=== PATIENT | female | born 1955 | race African-American/Black ===

== ENCOUNTER 2025-01-15 01:13 | Inpatient (IN) | payer MEDICARE, OTHER ==
[~2025-01-15] VITALS: Ht 172.7 cm; Wt 95.5 kg
[2025-01-15 01:48] VITALS: PULSE 96; RESP 17; TEMP 98.2; O2SAT 96
[2025-01-15] MEDS: LABETALOL HCL 20 MG/4 ML VL IV ONE (02:01)
[2025-01-15] MEDS: LIDOCAINE W/ EPINEPHRINE 1% 20ML VIAL ID ONE (02:02)
[2025-01-15 02:31] LABS: Basophils # (auto) 0 10 ^3/uL (0-0.2); Basophils % (auto) 0.5 % (0.0-2.0); Eosinophils # (auto) 0.1 10 ^3/uL (0-0.8); Eosinophils % (auto) 0.8 % (0.0-7.0); Hematocrit 41.1 % (36.0-46.0); Hemoglobin 14.2 g/dL (12.2-16.2); Lymphocytes # (auto) 2.2 10 ^3/uL (0.4-5.4); Lymphocytes % (auto) 27.7 % (10.0-50.0); Mean Corpuscular Hemoglobin 30.7 pg (28.0-32.0); Mean Corpuscular Hgb Conc. 34.5 g/dL (32.0-36.0); Monocytes # (auto) 0.8 10 ^3/uL (0-1.3); Monocytes % (auto) 10.4 % (0.0-12.0); Neutrophils # (auto) 4.9 10 ^3/uL (1.6-8.6); Neutrophils % (auto) 60.6 % (37.0-80.0); Nucleated Red Blood Cells % 0.1 %; Platelet Count (auto) 221 10^3/uL (140-450); Red Blood Cells 4.62 10^6/uL (4.0-5.20); Red Cell Distribution Width 15.1 % (11.8-14.3)
[2025-01-15] MEDS: hydrALAZINE HCL 20 MG/ML VL IV ONE (02:31)
[2025-01-15 02:42] LABS: Sodium 142 mmol/L (136-145)
[2025-01-15 02:43] LABS: Anion Gap 12 (5-15); Calcium 9.6 mg/dL (8.7-10.4); Carbon Dioxide 22 mmol/L (20-31)
[2025-01-15 02:44] LABS: Chloride 108 mmol/L (98-107); Potassium 3.4 mmol/L (3.5-5.1)
[2025-01-15 02:48] LABS: BUN/Creatinine Ratio 11.9 (10.0-20.0); Blood Urea Nitrogen 15 mg/dL (9-23)
[2025-01-15 02:49] LABS: INR 0.93 (0.9-1.15); Prothrombin Time 9.9 sec (9.3-11.8)
[2025-01-15 02:50] LABS: Glucose 134 mg/dL (74-106)
--- NOTE | 2025-01-15 02:57 | ED.PDOC ---
Epistaxis- HPI HPI Comments 69-year-old female, with a history of hypertension, is brought in by ambulance for bilateral there epistaxis. Patient endorses on sudden onset of symptoms at 12:00 a.m., this morning. This is a 3rd time that has happened to her. She reports being on noncompliant with her hypertension medication in 2017, with her systolic pressure usually being at around 200s range.. Patient is not on blood thinners. Patient admits also to being stressed. On arrival to ED, patient's bleeding is reported to have ceased. Denies any recent injuries or travels. Denies having any lightheadedness, dizziness, weakness, or further associated symptoms. Chief Complaint: Nose Bleed Time Seen by MD: 01:24 Reviewed Notes: Nurses Notes, Crystal Grower Notes, Medications, Allergies Allergies: Coded Allergies: NO KNOWN ALLERGIES (Unverified , 01/15/25) Information Source: Patient, Emergency Med Personnel Mode of Arrival: Ambulatory Vital Signs Vital Signs Date Time Temp Pulse Resp B/P (MAP) Pulse Ox O2 Delivery O2 Flow Rate FiO2 01/15/25 04:24 178/106 01/15/25 04:13 114 01/15/25 01:48 98.2 17 96 98.2 01/15/25 01:48 Room Air* 0 21 Physical Exam General: Awake, alert and oriented. No acute distress. Skin: Skin in warm, dry and intact. Appropriate color for ethnicity. HEENT: The head is normocephalic and atraumatic. Conjunctivae are clear without exudates or hemorrhage. Sclera is non-icteric. EOM are intact. No signs of nystagmus. Eyelids are normal in appearance without swelling or lesions. Oral mucosa is pink and moist. Packing in bilateral naris, left is clean, right has some dry blood, no active bleeding Neck: The neck is supple with normal range of motion. No JVD. Cardiac: Heart rate and rhythm are normal. No murmurs, gallops, or rubs are auscultated. Respiratory: No signs of respiratory distress. Lung sounds are clear in all lobes bilaterally without rales, rhonchi, or wheezes. Abdominal: Abdomen is soft, non-tender without distention, guarding or rigidity. Bowel sounds are present and normoactive in all four quadrants. Extremities: Upper and lower extremities are atraumatic in appearance without de formity or edema. Neurological: The patient is awake, alert and oriented to person, place, and time with normal speech. Speech is clear. There is no facial asymmetry. Psychiatric: Appropriate mood and affect. Good judgement and insight. Review of Systems: REVIEW OF SYSTEMS: No fever, no chills, or fatigue HEENT: Nosebleed, no sore throat, no earache, no congestion, no neck pain. Cardiac: No chest pain. No palpitations. Lungs: No shortness of breath, no cough. GI: No nausea, no vomiting, no diarrhea, no constipation, no abdominal pain : No dysuria, frequency, or urgency. No hematuria. Musculoskeletal: No joint pain , no joint swelling, no extremity edema. Skin: No rash, no itching. 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 Was a procedure done?: No EKG EKG : Pulse Rate (adult): 114 [place]: Normal Cardiac Rhythm: ST Block: None Hypertrophy: None ST: Normal Differential Diagnosis (NSB) Differential Diagnosis: Anterior Nasal Bleed, Posterior Nasal Bleed, Hypertension, Coagulopathy X-Ray, Labs, Meds, VS Vital Signs Date Time Temp Pulse Resp B/P (MAP) Pulse Ox O2 Delivery O2 Flow Rate FiO2 01/15/25 04:24 178/106 01/15/25 04:13 114 01/15/25 04:00 89 01/15/25 03:27 93 200/138 01/15/25 02:31 190/120 01/15/25 02:01 106 179/132 01/15/25 01:48 98.2 96 17 179/132 (148) 96 98.2 01/15/25 01:48 96 17 96 Room Air* 0 21 01/15/25 01:23 97.7 112 20 211/116 (147) 97 97.7 01/15/25 01:19 114 Lab Test 01/15/25 03:20 01/15/25 01:56 Range/Units Urine Color Colorless Yellow Urine Clarity Clear Clear Urine pH 6.0 5.0-9.0 Urine Specific [place] 1.009 1.001-1.035 Urine Protein Trace H Negative Urine Ketones Negative Negative Urine Blood Negative Negative /uL Urine Nitrite Negative Negative Urine Bilirubin Negative Negative Urine Urobilinogen Normal Negative mg/dL Urine Leukocyte Esterase Negative Negative /uL Urine RBC None seen 0 - 4 /hpf Urine Microscopic WBC 2 0-5 /HPF Urine Squamous Epithelial Cells Few <5 /hpf Urine Bacteria Few H None Seen /hpf Urine Glucose Normal Normal mg/dL White Blood Count 8.0 4.4-10.8 10^3/uL Red Blood Count 4.62 4.0-5.20 10^6/uL Hemoglobin 14.2 12.2-16.2 g/dL Hematocrit 41.1 36.0-46.0 % Mean Corpuscular Volume 89.0 80.0-100.0 fL Mean Corpuscular Hemoglobin 30.7 28.0-32.0 pg Mean Corpuscular Hemoglobin Concent 34.5 32.0-36.0 g/dL Red Cell Distribution Width 15.1 H 11.8-14.3 % Platelet Count 221 140-450 10^3/uL Mean Platelet Volume 8.1 6.9-10.8 fL Neutrophils (%) (Auto) 60.6 37.0-80.0 % Lymphocytes (%) (Auto) 27.7 10.0-50.0 % Monocytes (%) (Auto) 10.4 0.0-12.0 % Eosinophils (%) (Auto) 0.8 0.0-7.0 % Basophils (%) (Auto) 0.5 0.0-2.0 % Neutrophils # (Auto) 4.9 1.6-8.6 10 ^3/uL Lymphocytes # (Auto) 2.2 0.4-5.4 10 ^3/uL Monocytes # (Auto) 0.8 0-1.3 10 ^3/uL Eosinophils # (Auto) 0.1 0-0.8 10 ^3/uL Basophils # (Auto) 0 0-0.2 10 ^3/uL Nucleated Red Blood Cells 0.1 % Prothrombin Time 9.9 9.3-11.8 sec Prothrombin Time INR 0.93 0.9-1.15 Sodium Level 142 136-145 mmol/L Potassium Level 3.4 L 3.5-5.1 mmol/L Chloride Level 108 H 98-107 mmol/L Carbon Dioxide Level 22 20-31 mmol/L Anion Gap 12 5-15 Blood Urea Nitrogen 15 9-23 mg/dL Creatinine 1.26 H 0.550-1.02 mg/dL Glomerular Filtration Rate Calc 47 >90 mL/min BUN/Creatinine Ratio 11.9 10.0-20.0 Serum Glucose 134 H 74-106 mg/dL Calcium Level 9.6 8.7-10.4 mg/dL Current Medications Medications (Trade) Dose Ordered Sig/Sandie Route Start Time Stop Time Status Last Admin Labetalol HCl (Labetalol HCl) 20 mg ONCE ONCE IV 01/15/25 01:45 01/15/25 01:53 DC 01/15/25 02:01 Hydralazine HCl (Apresoline Injection) 10 mg ONCE ONCE IV 01/15/25 02:30 01/15/25 02:31 DC 01/15/25 02:31 Nicardipine/ Sodium Chloride 200 ml @ 50 mls/hr Q4H IV 01/15/25 04:15 01/15/25 04:24 Time of 1ST Reevaluation: 02:04 Reevaluation 1ST: Unchanged Patient Education/Counseling: Other (need for admission) Family Education/Counseling: No Family Present Departure 1 Departure Time of Disposition: 02:57 Impression: Primary Impression: Hypertensive urgency Additional Impression: Epistaxis Disposition: ADMITTED INPATIENT Condition: Stable Comments 69-year-old female in noncompliant with antihypertensive medication presents to the emergency department with epistaxis. She is found to have hypertensive urgency. Requiring nicardipine drip. Patient admitted to hospitalist service for further treatment, evaluation and monitoring. Extensive evaluation was performed in attempt to identify or rule out: (See differential diagnosis section) The following tests were ordered, and results were reviewed by me and discussed with patient: (See diagnostic results section) The following test were independently interpreted by me: EKG I reviewed and agreed with the following test results read by other providers: Chest x-ray I reviewed the following notes from the pt's past medical encounters: N/A Additional information was gathered from interviewing the following independent historians: EMS personnel Discussion of management or test interpretation with external physician/other qualified health infant caregiver: N/A Addressed an acute or chronic illness that poses a threat to life or bodily function: Hypertensive urgency Decision regarding hospitalization or escalation of hospital level of care: Risk and benefits of admission for further treatment of patient's condition was considered. Due to patient's current clinical condition, high risk of decline and poor outcome if discharged and need for further inpatient management and monitoring, patient will be admitted to the hospital. Drug therapy requiring intensive monitoring for toxicity: IV labetalol, IV hydralazine, IV nicardipine Parenteral controlled substances: N/A Decision regarding elective major surgery with identified patient or procedure risk factors: N/A Decision regarding emergency major surgery: N/A Decision not to resuscitate or to de-escalate care because of poor prognosis: N/A Diagnosis or treatment significantly limited by social determinants of health: N/A Critical Care Note Critical Care Time?: No Stability Stability form required: No Heart Score Heart Score: Heart Score Response (Comments) Value History N/A 0 EKG N/A 0 Age N/A 0 Risk Factors N/A 0 Troponin N/A 0 Total 0 I personally scribed for KAREN GREENWOOD MD ([email or web address]) on 01/15/25 at 04:13. Electronically submitted by Les Anaya [email or web address]). KAREN GREENWOOD MD Jan 15, 2025 02:57
[2025-01-15] MEDS: OXYMETAZOLINE HCL 0.05 % NASAL SPRAY 15ML EACHNOSTRI ONE (03:24)
[2025-01-15 03:41] LABS: Urine Bacteria FEW /hpf (None Seen); Urine Blood Negative /uL (Negative); Urine Clarity Clear (Clear); Urine Color Colorless (Yellow); Urine Protein, UAD TRACE (Negative); Urine Specific Gravity 1.009 (1.001-1.035); Urine Squamous Epithelial Cell FEW /hpf (<5); Urine Urobilinogen Normal (Negative); Urine WBC 2 /HPF (0-5)
[2025-01-15] MEDS: NICARDIPINE HCL IN SODIUM CHLO 200 ML IV SCH (04:24)
--- NOTE | 2025-01-15 05:14 | DVH ---
EXAM: XR Chest, 1 View CLINICAL INDICATION: Pain TECHNIQUE: Frontal view of the chest. COMPARISON: No relevant prior studies available. FINDINGS: LUNGS AND PLEURAL SPACES: Unremarkable. No consolidation. No pneumothorax. HEART: Unremarkable. No cardiomegaly. MEDIASTINUM: Unremarkable. Normal mediastinal contour. BONES/JOINTS: Unremarkable. No acute fracture. IMPRESSION: No acute cardiopulmonary process.
--- NOTE | 2025-01-15 05:49 | ECG ---
[facility] Test Date: 2025-01-15 Test Time: 01:19:51 Pat Name: MADALYN OJEDAAlbinoLAM Department: ED Room: [address] [place] [address] Gender: F Ed Physicians: LANE : 1955 Requested By: KAREN GREENWOOD Order Number: [id number] Reading MD: Mynor Mckeon Measurements Intervals [place] Rate: 114 P: 81 NC: 147 QRS: -34 QRSD: 94 T: 86 QT: 363 QTc: 501 Interpretive Statements Sinus tachycardia Abnormal R-wave progression, early transition LVH with secondary repolarization abnormality Borderline prolonged QT interval Electronically Signed On 01-16-2025 22:49:03 PDT by Mynor Mckeon Please click the below link to view image of tracing.
--- NOTE | 2025-01-15 05:54 | DVHHPRES ---
History of Present Illness Resident Creating Document: FREDDY AUSTIN RESIDENT History of Present Illness 69 Female with PMH of hypertension diagnosed in 2017 presented with complaints of nose bleed that started today morning. Patient mentioned that in the morning she had nosebleed and she realized she might have had blood pressure so she called the EMS. The blood pressure recorded by the EMS was in 250s. In the ER, rhino rocket was inserted by the ER physician. She mentioned that she has stopped taking medication in 2017. Does not follow up with any doctor. Patient is not mentioning of any active chest pain, shortness of breath, nausea, vomiting, abdominal pain, decreased urine output, and blurry vision. She is refusing any complaints of previous strokes, CAD. . PMH hypertension Surgical history Recent surgeries Medication history Noncompliant Allergic history No known allergies Social history Patient denied smoking, alcohol, consumes occasional marijuana and refused any other drugs Family history significant for diabetes mellitus and kidney failure Review of Systems Review of Systems As described in the HPI Allergies: Coded Allergies: NO KNOWN ALLERGIES (Unverified , 01/15/25) Medications Current Medications Medications Dose Ordered Sig/Sandie Route Start Time Stop Time Status Last Admin Dose Admin Nicardipine/ Sodium Chloride 200 ml @ 50 mls/hr Q4H IV 01/15/25 04:15 01/15/25 04:24 50 MLS/HR Exam Vital Signs Vital Signs Date Time Temp Pulse Resp B/P (MAP) Pulse Ox O2 Delivery O2 Flow Rate FiO2 01/15/25 05:10 170/103 01/15/25 04:52 105 01/15/25 04:00 13 95 01/15/25 01:48 98.2 98.2 01/15/25 01:48 Room Air* 0 21 Exam Examination General Appearance: Alert, Oriented X3, Cooperative, No acute distress HEENT: EOMI, Rhino Johny present Respiratory: Clear to auscultation, Normal air movement Cardiovascular: Regular rate, Normal S1, Normal S2 Abdominal: Normal bowel sounds Extremities: No cyanosis, No edema, Normal pulses, No tenderness/swelling Skin: No rashes, No breakdown Neuro: Normal gait, Normal speech, Strength at 5/5 X4 ext, Normal tone, Sensation intact, Cranial nerves 3-12 NL, Reflexes 2+ Psych/Mental Status: Mental status NL, Mood NL Labs/Xrays Labs Test 01/15/25 03:20 01/15/25 01:56 Range/Units Urine Color Colorless Yellow Urine Clarity Clear Clear Urine pH 6.0 5.0-9.0 Urine Specific [place] 1.009 1.001-1.035 Urine Protein Trace H Negative Urine Ketones Negative Negative Urine Blood Negative Negative /uL Urine Nitrite Negative Negative Urine Bilirubin Negative Negative Urine Urobilinogen Normal Negative mg/dL Urine Leukocyte Esterase Negative Negative /uL Urine RBC None seen 0 - 4 /hpf Urine Microscopic WBC 2 0-5 /HPF Urine Squamous Epithelial Cells Few <5 /hpf Urine Bacteria Few H None Seen /hpf Urine Glucose Normal Normal mg/dL White Blood Count 8.0 4.4-10.8 10^3/uL Red Blood Count 4.62 4.0-5.20 10^6/uL Hemoglobin 14.2 12.2-16.2 g/dL Hematocrit 41.1 36.0-46.0 % Mean Corpuscular Volume 89.0 80.0-100.0 fL Mean Corpuscular Hemoglobin 30.7 28.0-32.0 pg Mean Corpuscular Hemoglobin Concent 34.5 32.0-36.0 g/dL Red Cell Distribution Width 15.1 H 11.8-14.3 % Platelet Count 221 140-450 10^3/uL Mean Platelet Volume 8.1 6.9-10.8 fL Neutrophils (%) (Auto) 60.6 37.0-80.0 % Lymphocytes (%) (Auto) 27.7 10.0-50.0 % Monocytes (%) (Auto) 10.4 0.0-12.0 % Eosinophils (%) (Auto) 0.8 0.0-7.0 % Basophils (%) (Auto) 0.5 0.0-2.0 % Neutrophils # (Auto) 4.9 1.6-8.6 10 ^3/uL Lymphocytes # (Auto) 2.2 0.4-5.4 10 ^3/uL Monocytes # (Auto) 0.8 0-1.3 10 ^3/uL Eosinophils # (Auto) 0.1 0-0.8 10 ^3/uL Basophils # (Auto) 0 0-0.2 10 ^3/uL Nucleated Red Blood Cells 0.1 % Prothrombin Time 9.9 9.3-11.8 sec Prothrombin Time INR 0.93 0.9-1.15 Sodium Level 142 136-145 mmol/L Potassium Level 3.4 L 3.5-5.1 mmol/L Chloride Level 108 H 98-107 mmol/L Carbon Dioxide Level 22 20-31 mmol/L Anion Gap 12 5-15 Blood Urea Nitrogen 15 9-23 mg/dL Creatinine 1.26 H 0.550-1.02 mg/dL Glomerular Filtration Rate Calc 47 >90 mL/min BUN/Creatinine Ratio 11.9 10.0-20.0 Serum Glucose 134 H 74-106 mg/dL Calcium Level 9.6 8.7-10.4 mg/dL Assessment/Plan Assessment/Plan Assessment/plan # hypertensive crisis EKG shows LVH changes Troponins BNP Chest x-ray Urine protein/creatinine ratio Controlled reduction of blood pressure( 25% in first 24 hours) echo #?KELLY over ?CKD -monitor -Control of BP # epistaxis due to hypertensive crisis -oxymetazoline follow up krishna bhardwaj #Hypokalemia corrected magnesium levels Case discussion with Dr. Bateman Plan discussed with: Other My Orders Orders - FREDDY AUSTIN RESIDENT Procedure Category Date Status Time Admit ADMIT 01/15/25 Transmitted 05:27 Oxygen By Nasal RT 01/15/25 Transmitted Cannula 05:27 Stat Ekg For Chest SHIRA 01/15/25 In Process Pain 05:27 Notify Of Changes SHIRA 01/15/25 In Process From Base 05:27 Cement Mason Maintenance For [facility] 01/15/25 In Process 24 Hours 05:27 Emergency Dysrhythmia SHIRA 01/15/25 In Process Protocol 05:27 Rhythm Strips Once SHIRA 01/15/25 In Process Every Shift 05:27 Electrocardigram EKG 01/15/25 Logged 05:27 Troponin-I Hs LAB 01/15/25 Logged 05:27 B-Type Natriuretic LAB 01/15/25 Logged Peptide 05:27 Drug Screen LAB 01/15/25 Logged 05:27 Urine LAB 01/15/25 Logged Protein/Creatinine Urine Protein LAB 01/15/25 Logged 05:27 Date of Service: Jan 15, 2025 Billing Provider: CARMEN BATEMAN MD Common Visit Codes: [id number] INP/OBS CARE (HIGH) Secondary Visit Codes: [id number] CARE PLAN 30 MINUTES FREDDY AUSTIN Jan 15, 2025 05:54
[2025-01-15 06:10] LABS: Protein, Urine 53.2 mg/dL (1-14)
[2025-01-15 06:13] LABS: Cannabinoid Screen, Urine Pos (NEGATIVE); Creatinine, Urine 56.92 mg/dL (30.0-125.0); Urine Protein/Creatinine Ratio 0.93
[2025-01-15 06:14] LABS: Amphetamine Screen, Urine Neg (NEGATIVE); Barbiturate Scree,Urine Neg (NEGATIVE); Benzodiazephine Screen, Urine Neg (NEGATIVE); Cocaine Screen, Urine Neg (NEGATIVE); Opiate Scree,Urine Neg (NEGATIVE); Phencyclidine Screen, Urine Neg (NEGATIVE)
[2025-01-15 06:18] LABS: Albumin 4.8 g/dL (3.2-4.8); Bilirubin, Direct 0.3 mg/dL (<0.3); Bilirubin, Total 1.2 mg/dL (0.2-1.0); Total Protein 8.1 g/dL (5.7-8.2)
[2025-01-15] MEDS: POTASSIUM EFFERVESENT TAB 25 MEQ PO ONE (06:21)
[2025-01-15 06:31] VITALS: BP 194/142; PULSE 114; RESP 20; O2SAT 95
--- NOTE | 2025-01-15 06:57 | DVHDSRES ---
Discharge Summary Date of Admission Resident Creating Document: FREDDY AUSTIN RESIDENT Jan 15, 2025 at 05:27 Date of Discharge: Jan 15, 2025 Labs/Diagnostic Data: Laboratory Results Test 01/15/25 03:20 01/15/25 01:56 Urine Color Colorless (Yellow) Urine Clarity Clear (Clear) Urine pH 6.0 (5.0-9.0) Urine Specific [place] 1.009 (1.001-1.035) Urine Protein Trace (Negative) Urine Ketones Negative (Negative) Urine Blood Negative /uL (Negative) Urine Nitrite Negative (Negative) Urine Bilirubin Negative (Negative) Urine Urobilinogen Normal mg/dL (Negative) Urine Leukocyte Esterase Negative /uL (Negative) Urine RBC None seen /hpf (0 - 4) Urine Microscopic WBC 2 /HPF (0-5) Urine Squamous Epithelial Cells Few /hpf (<5) Urine Bacteria Few /hpf (None Seen) Urine Creatinine 56.92 mg/dL (30.0-125.0) Urine Protein/Creatinine Ratio 0.93 Urine Glucose Normal mg/dL (Normal) Urine Total Protein 53.2 mg/dL (1-14) Urine Opiates Screen Neg (NEGATIVE) Urine Fentanyl Screen Neg (NEGATIVE) Urine Barbiturates Screen Neg (NEGATIVE) Urine Phencyclidine Screen Neg (NEGATIVE) Urine Amphetamines Screen Neg (NEGATIVE) Urine Benzodiazepines Screen Neg (NEGATIVE) Urine Cocaine Screen Neg (NEGATIVE) Urine Cannabinoids Screen Pos (NEGATIVE) White Blood Count 8.0 10^3/uL (4.4-10.8) Red Blood Count 4.62 10^6/uL (4.0-5.20) Hemoglobin 14.2 g/dL (12.2-16.2) Hematocrit 41.1 % (36.0-46.0) Mean Corpuscular Volume 89.0 fL (80.0-100.0) Mean Corpuscular Hemoglobin 30.7 pg (28.0-32.0) Mean Corpuscular Hemoglobin Concent 34.5 g/dL (32.0-36.0) Red Cell Distribution Width 15.1 % (11.8-14.3) Platelet Count 221 10^3/uL (140-450) Mean Platelet Volume 8.1 fL (6.9-10.8) Neutrophils (%) (Auto) 60.6 % (37.0-80.0) Lymphocytes (%) (Auto) 27.7 % (10.0-50.0) Monocytes (%) (Auto) 10.4 % (0.0-12.0) Eosinophils (%) (Auto) 0.8 % (0.0-7.0) Basophils (%) (Auto) 0.5 % (0.0-2.0) Neutrophils # (Auto) 4.9 10 ^3/uL (1.6-8.6) Lymphocytes # (Auto) 2.2 10 ^3/uL (0.4-5.4) Monocytes # (Auto) 0.8 10 ^3/uL (0-1.3) Eosinophils # (Auto) 0.1 10 ^3/uL (0-0.8) Basophils # (Auto) 0 10 ^3/uL (0-0.2) Nucleated Red Blood Cells 0.1 % Prothrombin Time 9.9 sec (9.3-11.8) Prothrombin Time INR 0.93 (0.9-1.15) Sodium Level 142 mmol/L (136-145) Potassium Level 3.4 mmol/L (3.5-5.1) Chloride Level 108 mmol/L (98-107) Carbon Dioxide Level 22 mmol/L (20-31) Anion Gap 12 (5-15) Blood Urea Nitrogen 15 mg/dL (9-23) Creatinine 1.26 mg/dL (0.550-1.02) Glomerular Filtration Rate Calc 47 mL/min (>90) BUN/Creatinine Ratio 11.9 (10.0-20.0) Serum Glucose 134 mg/dL (74-106) Hemoglobin A1c 5.5 % A1C (<5.7) Calcium Level 9.6 mg/dL (8.7-10.4) Magnesium Level 2.0 mg/dL (1.6-2.6) Total Bilirubin 1.2 mg/dL (0.2-1.0) Direct Bilirubin 0.3 mg/dL (<0.3) Aspartate Amino Transferase (AST) 18 U/L (<34) Alanine Aminotransferase (ALT) 17 U/L (7-40) Alkaline Phosphatase 107 U/L (46-116) Troponin I High Sensitivity 9 ng/L (</=34) B-Type Natriuretic Peptide 31.15 pg/mL (0-100) Total Protein 8.1 g/dL (5.7-8.2) Albumin 4.8 g/dL (3.2-4.8) Triglycerides Level 141 mg/dL (< 150) Cholesterol Level 201 mg/dL (< 200) LDL Cholesterol 124 mg/dL (< 100) HDL Cholesterol 51 mg/dL (40-59) Other Laboratory Tests 01/15/25 01:56 Brief Hx & Hospital Course: 69 Female with PMH of hypertension diagnosed in 2017 presented with complaints of nose bleed Patient mentioned that in the morning she had nosebleed and she realized she might have had blood pressure so she called the EMS. The blood pressure recorded by the EMS was in 250s. In the ER, rhino rocket was inserted by the ER physician. She mentioned that she has stopped taking medication in 2017. Patient was not following up with any doctor. Patient was not mentioning of any active chest pain, shortness of breath, nausea, vomiting, abdominal pain, decreased urine output, and blurry vision. Patient was started on nicardipine drip by the ED physician. Labs and imaging were ordered for workup for hypertensive crisis. Patient left AMA despite explaining the risk of leaving against medical advice including . Condition at Discharge: Undetermined (left AMA) Final Diagnosis/Problems List Undetermined Secondary Diagnosis: # hypertensive crisis #?KELLY over ?CKD # epistaxis due to hypertensive crisis #Hypokalemia Discharge Disposition: AMA Discharge Instruct/Medications Follow Up/Referral: Patient left AMA Medications: Left AMA Discharge Statement: "Patient was advised to return to the ER or call 911 if any headaches, dizziness, shortness of breath, chest pain, abdominal pain, bleeding, fevers, or worsening of medical condition. Patient was counseled about treatment plan, medications, possible side effects, patientverbalized understanding. All questions were answered to the best of my ability. This discharge took greater then 30 minutes in planning, reviewing documentation, counseling the patient, and discussing with other team members." ASSESSMENT ASSESSMENT Assessment FREDDY AUSTIN Jan 15, 2025 06:57 CARMEN BATEMAN MD Jan 17, 2025 10:12
[2025-01-15] MEDS ORDERED: LISINOPRIL 5 MG TAB PO SCH (10:00)
--- NOTE | 2025-01-17 07:03 | ECG ---
[facility] Test Date: 2025-01-15 Test Time: 04:52:13 Pat Name: MADALYN SANCHEZKELYAlbinoFRITZ Department: ED Room: [address] [place] [address] Gender: F Relief Pharmacist: LANE : 1955 Requested By: FREDDY AUSTIN Order Number: [id number] Reading MD: Measurements Intervals [place] Rate: 105 P: 77 IA: 154 QRS: -27 QRSD: 92 T: 74 QT: 377 QTc: 499 Interpretive Statements Sinus tachycardia Abnormal R-wave progression, early transition LVH with secondary repolarization abnormality Borderline prolonged QT interval Please click the below link to view image of tracing.
== END 2025-01-15 06:38 | disposition left against medical advice (07) | DRG 305 ==
LOC: EDBD 01:13 → ER 01:13 → OVERFLOW 05:27
PROVIDERS: ADMIT Student in an Organized Health Care Education/Training Program; ATTEND Emergency Medicine
DX: I16.9 Hypertensive crisis, unspecified (principal); N17.9 Acute kidney failure, unspecified; E87.6 Hypokalemia; N18.9 Chronic kidney disease, unspecified; I12.9 Hypertensive chronic kidney disease with stage 1 through stage 4 chronic kidney disease, or unspecified chronic kidney disease; Z79.899 Other long term (current) drug therapy
CPT/HCPCS: 36415; 71045; 80048; 80061; 80076; 80307; 81001; 82570; 83036; 83735; 83880; 84156; 84484; 85025; 85610; 93005; 96365; 96375; G0378